=== PATIENT | female | born 2000 | race Caucasian/White ===

== ENCOUNTER 2024-12-11 14:38 | Emergency (ER) | payer SELFPAY ==
[2024-12-11] MEDS: Ketorolac 30 MG/ML SDV IM ONE (15:32)
== END 2024-12-11 15:49 | disposition home or self-care (01) ==
LOC: MW.ED 14:38
DX: L03.116 Cellulitis of left lower limb (principal); L25.9 Unspecified contact dermatitis, unspecified cause; Z75.3 Unavailability and inaccessibility of health-care facilities
CPT/HCPCS: 96372; 99282; J1100; J1885; 99283